=== PATIENT | male | born 1970 | race Caucasian/White ===

== ENCOUNTER 2022-02-11 20:41 | Emergency (ER) | payer MEDICARE ==
[2022-02-11] MEDS ORDERED: BABY ASPIRIN 81 MG CHEW PO ONE (20:58)
[2022-02-11 21:17] LABS: Absolute Neutrophil Ct (ANC) 4.16 x10^3/uL (1.4-6.9); Basophil (Absolute #) 0.04 x10^3/uL (0-0.4); Eosinophil % 0.9 % (0.00-5.0); Eosinophil (Absolute #) 0.08 x10^3/uL (0-0.5); Hematocrit 45.8 % (42-50); Hemoglobin 15.4 g/dL (12.5-18.0); Lymphocyte (Absolute #) 3.07 x10^3/uL (1.0-4.6); Lymphocytes % 35.7 % (24.0-44.0); Mean Cell Volume 90.7 fL (78-100); Mean Corpuscular Hemoglobin 30.5 pg (26-32); Mean Corpuscular Hgb Concent. 33.6 g/dL (32-36); Monocyte (Absolute #) 1.23 x10^3/uL (0.0-1.3); Monocytes % 14.3 % (0.0-12.0); Neutrophil % 48.3 % (36.0-66.0); Platelet Count 281 x10^3/uL (150-450); Red Blood Count 5.05 x10^6/uL (4.1-5.6); Red Cell Distribution Width 12.2 % (11.5-14.0); White Blood Count 8.6 x10^3/uL (4.0-10.5)
[2022-02-11 21:37] LABS: ALBUMIN 4.5 g/dL (3.5-5.0); ALKALINE PHOSPHATASE 78 U/L (38-126); ANION GAP 15.1 MEQ/L (5-15); BLOOD UREA NITROGEN 10 mg/dL (9-20); CHLORIDE 105 mmol/L (98-107); CK-Creatinine Phosphokinase 780 U/L (55-170); Calcium 8.8 mg/dL (8.4-10.2); Carbon Dioxide 24 mmol/L (22-30); Creatinine 1 0.86 mg/dL (0.66-1.25); EST GLOMERULAR FILTRATION RATE > 60.0 ML/MIN; Glucose 127 mg/dL (74-106); NT PRO BNP 94.2 pg/mL (0-900); Potassium 3.6 mmol/L (3.5-5.1); SGOT/AST 41 U/L (17-59); SGPT/ALT 33 U/L (0-50); SODIUM 140 mmol/L (137-145); Total Protein 7.7 g/dL (6.3-8.2)
[2022-02-11] MEDS ORDERED: Sodium Chloride 0.9% 1000 ML 1,000 ML IV STA (21:53)
--- NOTE | 2022-02-11 21:55 | ERPHSYRPT ---
- History of Present Illness Time Seen by Provider: 02/11/22 20:45 Historian: patient Exam Limitations: no limitations Patient Subjective Stated Complaint: chest pain Triage Nursing Assessment: pt ambulated into ER without diff, spouse at bedside. Pt c/o chest pain directly under left nipple. Pt denies any radiation of pain. Pt was sitting at the bar drinking today when this occured, had about 4-5 crown and cokes. Pt denies any nausea, vomiting or diaphoresis. Pt had been outside cutting wood most the afternoon. Physician History: 51-year-old male with history of coronary artery disease status post stenting, tobacco abuse presented in the ER with chief complaint of left-sided chest pain sudden onset almost half an hour prior to arrival. Patient took 1 nitro with no significant relief. Patient reports dull aching left-sided pain with no radiation and without any significant aggravating or relieving factors. Denies associated palpitations or shortness of breath. No fever or chills reported. 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 Timing/Duration: hour(s) (0.5), constant, sudden Activities at Onset: rest Quality: burning, dullness Location: substernal Chest Pain Radiation: no radiation Severity of Pain-Max: moderate Severity of Pain-Current: moderate Modifying Factors: Improves With: nothing Associated Symptoms: denies symptoms Prior Chest Pain/Cardiac Workup: cardiac cath, heart attack Nitro Today/Relief: 0.4 mg x 1 Aspirin Treatment Today: 81 mg x 1 Allergies/Adverse Reactions: hydrocodone Adverse Reaction (Intermediate, Verified 02/11/22 20:58) Hives Home Medications: Aspirin EC 81 mg [Ecotrin 81 mg] 1 tab PO DAILY 02/11/22 [History] Hx Tetanus, Diphtheria Vaccination/Date Given: Yes Hx Influenza Vaccination/Date Given: No Hx Pneumococcal Vaccination/Date Given: No Immunizations Up to Date: No Travel Risk - International Travel Have you traveled outside of the country in past 3 weeks: No - Coronavirus Screening Are you exhibiting any of the following symptoms?: No Close contact with a COVID-19 positive Pt in past 14-21 Days: No - Vaccine Status Have you recieved a Covid-19 vaccination: Yes Benefits Analyst: Moderna - Vaccination Dates Date of 2cond Vaccination (if applicable): . - Review of Systems Constitutional: No Symptoms Eyes: No Symptoms Ears, Nose, & Throat: No Symptoms Respiratory: No Symptoms Cardiac: Chest Pain Abdominal/Gastrointestinal: No Symptoms Genitourinary Symptoms: No Symptoms Musculoskeletal: No Symptoms Skin: No Symptoms Neurological: No Symptoms Psychological: No Symptoms Endocrine: No Symptoms Hematologic/Lymphatic: No Symptoms - Past Medical History Pertinent Past Medical History: Yes Neurological History: No Pertinent History ENT History: No Pertinent History Cardiac History: Hypertension, Myocardial Infarction ([place]) Respiratory History: COPD Endocrine Medical History: Diabetes Type II Musculoskeletal History: Fractures GI Medical History: GERD History: No Pertinent History Psycho-Social History: Anxiety, Depression Male Reproductive Disorders: No Pertinent History - Past Surgical History Past Surgical History: Yes Neuro Surgical History: No Pertinent History Cardiac: Cardiac Catheterization, Cardiac Stent Musculoskeletal: Other Other Surgical History: both shoulder surgery x2, left knee surgery, rt and lt foot surgery - Social History Smoking Status: Current every day smoker How long have you smoked: 2 years Exposure to second hand smoke: Yes Drug Use: none Patient Lives Alone: No Significant Family History: no pertinent family hx - Nursing Vital Signs Nursing Vital Signs: Initial Vital Signs Temperature 97.9 F 02/11/22 20:43 Pulse Rate 87 02/11/22 20:43 Respiratory Rate 20 02/11/22 20:43 Blood Pressure 140/87 02/11/22 20:43 O2 Sat by Pulse Oximetry 100 02/11/22 20:43 Pain Scale Pain Intensity 0 - Physical Exam General Appearance: no apparent distress, alert Eye Exam: PERRL/EOMI Ears, Nose, Throat Exam: normal ENT inspection Neck Exam: normal inspection, supple, full range of motion Respiratory Exam: normal breath sounds, lungs clear Cardiovascular Exam: regular rate/rhythm, normal heart sounds Gastrointestinal/Abdomen Exam: soft, normal bowel sounds, No tenderness Back Exam: normal inspection, normal range of motion Extremity Exam: normal inspection, normal range of motion Neurologic Exam: alert, oriented x 3, cooperative Skin Exam: normal color SpO2 Interpretation: normal SpO2: 100 O2 Delivery: Room Air - Course EKG Interpreted by Me: RATE (80), Sinus Rhythm, NORMAL AXIS, NORMAL INTERVALS, Non-specific ST Changes Ordered Tests: Active Orders 24 hr Category Date Time Status Cnc Field Service Engineer STAT Care 02/11/22 20:58 Completed EKG-ER Only STAT Care 02/11/22 20:58 Completed IV Insertion STAT Care 02/11/22 20:58 Completed Oxygen-ED Only Nasal Cannula 2 lpm Care 02/11/22 20:58 Completed CHEST 1 VIEW (PORTABLE) Stat Exams 02/11/22 20:58 Taken CBC W DIFF Stat Lab 02/11/22 21:13 Completed CK-Creatinine Phosphokinase Stat Lab 02/11/22 21:13 Completed CMP Stat Lab 02/11/22 21:13 Completed NT PRO BNP Stat Lab 02/11/22 21:13 Completed TROPONIN Q4H Lab 02/11/22 21:13 Completed Medication Summary Discontinued Medications Generic Name Dose Route Start Last Admin Trade Name Chayito PRN Reason Stop Dose Admin Aspirin 324 mg 02/11/22 20:58 02/11/22 21:08 Aspirin 81 Mg Tab.Chew PO 02/11/22 20:59 324 mg STAT ONE Administration Sodium Chloride 1,000 mls @ 999 mls/hr 02/11/22 21:53 02/11/22 22:01 Sodium Chloride 0.9% 1000 Ml IV 02/11/22 22:53 999 mls/hr .Q1H1M STA Administration Sodium Chloride Confirm 02/11/22 22:00 Sodium Chloride 0.9% 1000 Ml Administered 02/11/22 22:01 Dose 1,000 mls @ ud .ROUTE .STK-MED ONE Lab/Rad Data: Laboratory Result Diagrams 02/11/22 21:13 02/11/22 21:13 Laboratory Results 02/11/22 02/11/22 02/11/22 Range/Units 21:13 21:13 21:13 WBC 8.6 (4.0-10.5) x10^3/uL RBC 5.05 (4.1-5.6) x10^6/uL Hgb 15.4 (12.5-18.0) g/dL Hct 45.8 (42-50) % MCV 90.7 (78-100) fL MCH 30.5 (26-32) pg MCHC 33.6 (32-36) g/dL RDW 12.2 (11.5-14.0) % Plt Count 281 (150-450) x10^3/uL MPV 10.0 (7.5-11.0) fL Gran % 48.3 (36.0-66.0) % Immature Gran % (Auto) 0.3 (0.00-0.4) % Nucleat RBC Rel Count 0.0 (0.00-0.1) % Eos # (Auto) 0.08 (0-0.5) x10^3/uL Immature Gran # (Auto) 0.03 (0.00-0.03) x10^3u/L Absolute Lymphs (auto) 3.07 (1.0-4.6) x10^3/uL Absolute Monos (auto) 1.23 (0.0-1.3) x10^3/uL Absolute Nucleated RBC 0.00 (0.00-0.01) x10^3u/L Lymphocytes % 35.7 (24.0-44.0) % Monocytes % 14.3 H (0.0-12.0) % Eosinophils % 0.9 (0.00-5.0) % Basophils % 0.5 (0.0-0.4) % Absolute Granulocytes 4.16 (1.4-6.9) x10^3/uL Basophils # 0.04 (0-0.4) x10^3/uL Sodium 140 (137-145) mmol/L Potassium 3.6 (3.5-5.1) mmol/L Chloride 105 (98-107) mmol/L Carbon Dioxide 24 (22-30) mmol/L Anion Gap 15.1 H (5-15) MEQ/L BUN 10 (9-20) mg/dL Creatinine 0.86 (0.66-1.25) mg/dL Estimated GFR > 60.0 ML/MIN Glucose 127 H (74-106) mg/dL Calcium 8.8 (8.4-10.2) mg/dL Total Bilirubin 0.50 (0.2-1.3) mg/dL AST 41 (17-59) U/L ALT 33 (0-50) U/L Alkaline Phosphatase 78 (38-126) U/L Creatine Kinase 780 H (55-170) U/L Troponin I 0.028 (0.000-0.034) ng/mL NT-Pro-B Natriuret Pep 94.2 (0-900) pg/mL Serum Total Protein 7.7 (6.3-8.2) g/dL Albumin 4.5 (3.5-5.0) g/dL - Progress Progress: improved Air Movement: good Progress Note: 02/11/22 23:15 41-year-old with history of CAD, tobacco abuse is evaluated for precordial chest pain. Given aspirin, on reevaluation patient reported his chest pain is completely resolved. EKG showed some ST depression in lead II but no ST elevation and has negative initial troponins. Chest x-ray did not show any acute cardiopulmonary findings on preliminary report by Daniel saldana. Does have elevated CK level which patient probably have been doing hard work all day today and has elevated CK level, given fluids. I have discussed with and patient is excepted for admission. I discussed with patient about admission plan which she clearly refused. He refused to have CTA done as well. He refused to stay until second troponin. Patient wants to leave immediately. Patient is not confused or altered at all. Discussed with him about leaving AGAINST MEDICAL ADVICE which include but not limited to delaying the diagnosis, worsening of condition and permanent disability but he still does not want to stay. Patient states "I will follow-up with my torch cutter". Blood Culture(s) Obtained: No Antibiotics given: No Discussed with : Barb Counseled pt/family regarding: lab results, diagnosis, need for follow-up, rad results - Departure Departure Disposition: AMA Clinical Impression: Precordial chest pain, Rhabdomyolysis Condition: Stable Critical Care Time: No Referrals: CHECO PARKS DO [Primary Care Provider] - Follow up/PCP as directed (1-2 days for reevaluation) KOLTON WYATT [CONSULTING PHYSICIAN] - Follow up/PCP as directed (Tomorrow for reevaluation) Instructions: Angina (DC), Chest Pain (DC) Additional Instructions: Follow-up with primary care and cardiology for reevaluation. Return to ER for persistent chest pain or if having difficulty breathing/palpitations etc.
[2022-02-11] MEDS ORDERED: Sodium Chloride 0.9% 1000 ML 1,000 ML ONE (22:00)
[2022-02-11 23:21] VITALS: BP 136/79
[2022-02-11 23:22] VITALS: PULSE 66
[2022-02-12 00:25] VITALS: O2SAT 100
--- NOTE | 2022-02-12 09:02 | XRAY ---
Indication: Chest pain. Comparison: None Portable chest inflated and clear. Heart and mediastinal structures within normal limits. Bony thorax intact with osteopenia, degenerative changes, mild levoscoliosis, and left shoulder surgery. Impression: Nonacute chest with chronic bony findings. Comment: Preliminary interpretation made by [facility]. No critical discrepancy.
== END 2022-02-11 23:27 | disposition left against medical advice (07) ==
LOC: ED 20:41
DX: M62.82 Rhabdomyolysis (principal); R07.2 Precordial pain; I10 Essential (primary) hypertension; E11.9 Type 2 diabetes mellitus without complications; Z72.0 Tobacco use
CPT/HCPCS: 36000; 36415; 71045; 80053; 82550; 83880; 84484; 85025; 93005; 93041; 96360; 96374; 99284; A9270-GY

== ENCOUNTER 2022-05-26 03:22 | Emergency (ER) | payer MEDICARE ==
[2022-05-26] MEDS ORDERED: Adacel Vial IM ONE ×2 (04:16→04:19)
--- NOTE | 2022-05-26 04:18 | ERPHSYRPT ---
- History of Present Illness Time Seen by Provider: 05/26/22 03:45 Source: patient Patient Subjective Stated Complaint: pt reports falling over his dog and striking his head on a small end table. pt also reports abrasion to his left arm. pt denies LOC. Triage Nursing Assessment: pt is aox3, pupils perrl, afebrile, resps easy and non labored, radial pulses strong and equal, cap refill < 3 seconds, pt skin pink warm dry. pt with an approximate 2.5 cm laceration to his right lateral head, skin is well approximated, no bleeding at this time. Physician History: 51yo M presents to the ED and reports falling over his dog and striking his head on a small end table. pt also reports abrasion to his left arm. pt denies LOC. 2/10 HORVATH at this time. No focal deficits, speech changes or changes in vision. Timing/Duration: today Quality: painful Severity: mild Location: scalp Possible Causes: other (fall) Associated Symptoms: headache Allergies/Adverse Reactions: hydrocodone Adverse Reaction (Intermediate, Verified 05/26/22 03:37) Hives Home Medications: Aspirin EC 81 mg [Ecotrin 81 mg] 1 tab PO DAILY 02/11/22 [History] Hx Tetanus, Diphtheria Vaccination/Date Given: No (unk) Hx Influenza Vaccination/Date Given: No Hx Pneumococcal Vaccination/Date Given: No Immunizations Up to Date: Yes Travel Risk - International Travel Have you traveled outside of the country in past 3 weeks: No - Coronavirus Screening Are you exhibiting any of the following symptoms?: No Close contact with a COVID-19 positive Pt in past 14-21 Days: No - Vaccine Status Have you recieved a Covid-19 vaccination: Yes Occupancy Specialist: Moderna - Vaccination Dates Date of 2cond Vaccination (if applicable): unk - Review of Systems Constitutional: No Symptoms Eyes: No Symptoms Ears, Nose, & Throat: No Symptoms Respiratory: No Symptoms Cardiac: No Symptoms Abdominal/Gastrointestinal: No Symptoms Genitourinary Symptoms: No Symptoms Musculoskeletal: No Symptoms Skin: Other (laceration right scalp) Neurological: Headache - Past Medical History Pertinent Past Medical History: Yes Neurological History: No Pertinent History ENT History: No Pertinent History Cardiac History: Hypertension, Myocardial Infarction ([place]) Respiratory History: COPD Endocrine Medical History: Diabetes Type II Musculoskeletal History: Fractures GI Medical History: GERD History: No Pertinent History Psycho-Social History: Anxiety, Depression Male Reproductive Disorders: No Pertinent History - Past Surgical History Past Surgical History: Yes Neuro Surgical History: No Pertinent History Cardiac: Cardiac Catheterization, Cardiac Stent Musculoskeletal: Other Other Surgical History: both shoulder surgery x2, left knee surgery, rt and lt foot surgery - Social History Smoking Status: Current every day smoker How long have you smoked: 2 years Exposure to second hand smoke: No Drug Use: none Patient Lives Alone: No Significant Family History: no pertinent family hx - Nursing Vital Signs Nursing Vital Signs: Initial Vital Signs Temperature 97.6 F 05/26/22 03:28 Pulse Rate 66 05/26/22 03:28 Respiratory Rate 18 05/26/22 03:28 Blood Pressure 136/89 05/26/22 03:28 O2 Sat by Pulse Oximetry 96 05/26/22 03:28 Pain Scale Pain Intensity 1 - Physical Exam General Appearance: no apparent distress, alert Eye Exam: PERRL/EOMI, eyes nml inspection Ears, Nose, Throat Exam: normal ENT inspection Neck Exam: normal inspection, non-tender, supple, full range of motion Neurologic Exam: alert, oriented x 3, cooperative, normal mood/affect, nml station & gait, No motor deficits, No sensory deficit Skin Exam: normal color, warm, dry, abrasion (left wrist), laceration (right parietal region scalp) SpO2 Interpretation: normal SpO2: 99 O2 Delivery: Room Air Procedures - Laceration/Wound Repair Right Parietal Time of Procedure: 03:45 Wound Location: Right, head Wound Length (cm): 2.5 Wound's Depth, Shape: superficial Wound Explored: to base Irrigated: Yes Hibiclens Prep: Yes Anesthesia: 1% lidocaine w/ Epi Volume Anesthetic (ccs): 3.5 Wound Debrided: minimal Wound Repaired With: sutures Suture Size/Type: 5-0, vicryl Number of Sutures: 4 (superficial interrupted) Layer Closure?: Yes Deep Layer Suture Size/Type: 5:0 (vicryl) Number Deep Layer Sutures: 1 Sterile Dressing Applied?: No - Course Nursing assessment & vital signs reviewed: Yes - Progress Progress: improved Progress Note: See procedure note. Patient tolerated procedure well. No concern for fx or concussion at this time. 05/26/22 04:22 Counseled pt/family regarding: need for follow-up Medical Desision Making - Diagnostic Testing Diagnostic test were ordered, analyzed, and reviewed by me: No - Risk of complications Low Risk: Low risk of morbidity from additional dx testing or treatment - Departure Departure Disposition: Home Clinical Impression: Laceration Condition: Good Critical Care Time: No Instructions: Laceration Repair With Stitches (DC)
[2022-05-26 04:30] VITALS: BP 113/67; PULSE 66; O2SAT 97
== END 2022-05-26 04:29 | disposition home or self-care (01) ==
LOC: ED 03:22
DX: S01.01XA Laceration without foreign body of scalp, initial encounter (principal); S60.812A Abrasion of left wrist, initial encounter; W01.190A Fall on same level from slipping, tripping and stumbling with subsequent striking against furniture, initial encounter; R51.9 Headache, unspecified; E11.9 Type 2 diabetes mellitus without complications; I10 Essential (primary) hypertension; Z72.0 Tobacco use
CPT/HCPCS: 12001; 90471; 90715; 99282

== ENCOUNTER 2023-07-12 01:16 | Emergency (ER) | payer MEDICARE ==
[2023-07-12] MEDS ORDERED: BABY ASPIRIN 81 MG CHEW PO ONE (01:53)
[2023-07-12 02:06] LABS: Absolute Neutrophil Ct (ANC) 3.35 x10^3/uL (1.4-6.9); BASOPHIL % 0.6 % (0.0-0.4); Basophil (Absolute #) 0.05 x10^3/uL (0-0.4); Eosinophil % 2.6 % (0.00-5.0); Eosinophil (Absolute #) 0.23 x10^3/uL (0-0.5); Hematocrit 42.8 % (42-50); Hemoglobin 14.7 g/dL (12.5-18.0); IMMATURE GRAN # 0.03 x10^3u/L (0.00-0.03); IMMATURE GRAN % 0.3 % (0.00-0.4); Lymphocyte (Absolute #) 4.46 x10^3/uL (1.0-4.6); Lymphocytes % 51.3 % (24.0-44.0); Mean Cell Volume 89.7 fL (78-100); Mean Corpuscular Hemoglobin 30.8 pg (26-32); Mean Corpuscular Hgb Concent. 34.3 g/dL (32-36); Mean Platelet Volume 9.9 fL (7.5-11.0); Monocyte (Absolute #) 0.58 x10^3/uL (0.0-1.3); Monocytes % 6.7 % (0.0-12.0); Neutrophil % 38.5 % (36.0-66.0); Platelet Count 269 x10^3/uL (150-450); Red Blood Count 4.77 x10^6/uL (4.1-5.6); Red Cell Distribution Width 12.1 % (11.5-14.0); White Blood Count 8.7 x10^3/uL (4.0-10.5)
--- NOTE | 2023-07-12 02:07 | ERPHSYRPT ---
- History of Present Illness Time Seen by Provider: 07/12/23 01:41 Historian: patient, family Exam Limitations: no limitations Patient Subjective Stated Complaint: left sided chest pain moving up to left shoulder Triage Nursing Assessment: Pt ambulated to room, guarding chest. Respirations unlabored. Skin color WNL for race. A&O X 3. Lung sounds clear throughout. Heart sounds regular S1, S2 present. Bowel sounds hyperactive x 4 quad. No edema or diaphoresis. Denies dyspnea, N/V. Physician History: 52 years old male with history of coronary artery disease with stenting, hypertension, diabetes mellitus, tobacco abuse presented in the ER with complaint of sudden onset left-sided chest pain with some radiation to left shoulder and neck. Patient report he was really upset with his dog and started to have pain almost 20 minutes prior to arrival. He took nitro and improved on the way to emergency room. Patient is currently chest pain-free. Denies associated palpitations or shortness of breath. Aspirin Treatment Today: 81 mg x 1 Allergies/Adverse Reactions: hydrocodone Adverse Reaction (Intermediate, Verified 07/12/23 01:38) Hiv Home Medications: Aspirin EC 81 mg [Ecotrin 81 mg] 1 tab PO DAILY 02/11/22 [History] Hx Tetanus, Diphtheria Vaccination/Date Given: No (unk) Hx Influenza Vaccination/Date Given: No Hx Pneumococcal Vaccination/Date Given: No Immunizations Up to Date: Yes Travel Risk - International Travel Have you traveled outside of the country in past 3 weeks: No - Emerging Infectious Disease Are you exhibiting symptoms associated with any current EIDs: No - Review of Systems Constitutional: No Symptoms Ears, Nose, & Throat: No Symptoms Respiratory: No Symptoms Cardiac: No Symptoms Abdominal/Gastrointestinal: No Symptoms Genitourinary Symptoms: No Symptoms Musculoskeletal: Back Pain Skin: No Symptoms Neurological: No Symptoms Psychological: No Symptoms Endocrine: No Symptoms Hematologic/Lymphatic: No Symptoms Immunological/Allergic: No Symptoms - Past Medical History Pertinent Past Medical History: Yes Neurological History: No Pertinent History ENT History: No Pertinent History Cardiac History: Hypertension, Myocardial Infarction ([place]) Respiratory History: COPD Endocrine Medical History: Diabetes Type II Musculoskeletal History: Fractures GI Medical History: GERD History: No Pertinent History Psycho-Social History: Anxiety, Depression, Panic Disorder, Other Male Reproductive Disorders: No Pertinent History Other Medical History: explosive personality disorder, dislocated ribs - Past Surgical History Past Surgical History: Yes Neuro Surgical History: No Pertinent History Cardiac: Cardiac Catheterization, Cardiac Stent Respiratory: No Pertinent History Gastrointestinal: No Pertinent History Genitourinary: No Pertinent History Musculoskeletal: Other Male Surgical History: No Pertinent History Other Surgical History: both shoulder surgery x2, left knee surgery, rt and lt foot surgery Significant Family History: no pertinent family hx - Social History Smoking Status: Current every day smoker How long have you smoked: 38 years Exposure to second hand smoke: No Drug Use: none Patient Lives Alone: No - Nursing Vital Signs Nursing Vital Signs: Initial Vital Signs Pulse Rate 66 07/12/23 01:44 Respiratory Rate 18 07/12/23 01:44 Blood Pressure 132/87 07/12/23 01:44 O2 Sat by Pulse Oximetry 98 07/12/23 01:44 Pain Scale Pain Intensity 0 - Physical Exam General Appearance: no apparent distress, alert Eye Exam: PERRL/EOMI Ears, Nose, Throat Exam: normal ENT inspection Neck Exam: normal inspection, supple, full range of motion Respiratory Exam: normal breath sounds, lungs clear Cardiovascular Exam: regular rate/rhythm, normal heart sounds Gastrointestinal/Abdomen Exam: soft, No tenderness Back Exam: normal inspection Extremity Exam: normal inspection, normal range of motion Neurologic Exam: alert, cooperative, ice seller II-XII nml as tested Skin Exam: normal color SpO2 Interpretation: normal SpO2: 96 O2 Delivery: Room Air - Course EKG Interpreted by Me: RATE (69), Sinus Rhythm, NORMAL AXIS, NORMAL INTERVALS, NORMAL QRS Ordered Tests: Medication Summary Discontinued Medications Generic Name Dose Route Start Last Admin Trade Name Freq PRN Reason Stop Dose Admin Aspirin 243 mg 07/12/23 03:45 07/12/23 03:49 Aspirin 81 Mg Tab.Chew PO 07/12/23 03:46 243 mg STAT ONE Administration Lab/Rad Data: Laboratory Result Diagrams 07/12/23 01:50 07/12/23 01:50 Laboratory Results 07/12/23 07/12/23 07/12/23 Range/Units 01:50 01:50 01:50 WBC 8.7 (4.0-10.5) x10^3/uL RBC 4.77 (4.1-5.6) x10^6/uL Hgb 14.7 (12.5-18.0) g/dL Hct 42.8 (42-50) % MCV 89.7 (78-100) fL MCH 30.8 (26-32) pg MCHC 34.3 (32-36) g/dL RDW 12.1 (11.5-14.0) % Plt Count 269 (150-450) x10^3/uL MPV 9.9 (7.5-11.0) fL Gran % 38.5 (36.0-66.0) % Immature Gran % (Auto) 0.3 (0.00-0.4) % Nucleat RBC Rel Count 0.0 (0.00-0.1) % Eos # (Auto) 0.23 (0-0.5) x10^3/uL Immature Gran # (Auto) 0.03 (0.00-0.03) x10^3u/L Absolute Lymphs (auto) 4.46 (1.0-4.6) x10^3/uL Absolute Monos (auto) 0.58 (0.0-1.3) x10^3/uL Absolute Nucleated RBC 0.00 (0.00-0.01) x10^3u/L Lymphocytes % 51.3 H (24.0-44.0) % Monocytes % 6.7 (0.0-12.0) % Eosinophils % 2.6 (0.00-5.0) % Basophils % 0.6 (0.0-0.4) % Absolute Granulocytes 3.35 (1.4-6.9) x10^3/uL Basophils # 0.05 (0-0.4) x10^3/uL Sodium 139 (135-145) mmol/L Potassium 4.1 (3.5-5.1) mmol/L Chloride 105 (98-107) mmol/L Carbon Dioxide 23 (22-30) mmol/L Anion Gap 15.8 H (5-15) MEQ/L BUN 10 (9-20) mg/dL Creatinine 0.71 (0.66-1.25) mg/dL Estimated GFR 110.4 ML/MIN Glucose 94 (74-106) mg/dL Calcium 8.7 (8.4-10.2) mg/dL Total Bilirubin 0.30 (0.2-1.3) mg/dL AST 38 (17-59) U/L ALT 31 (0-50) U/L Alkaline Phosphatase 67 (38-126) U/L Troponin I < 0.012 (0.000-0.033) ng/mL NT-Pro-B Natriuret Pep 89.8 (<300) pg/mL Serum Total Protein 6.8 (6.3-8.2) g/dL Albumin 4.1 (3.5-5.0) g/dL - Progress Progress: improved Air Movement: good Progress Note: 07/12/23 04:01 52 years old is evaluated for sudden onset chest pain. EKG is normal sinus rhythm with no acute ischemic changes. Chest x-ray negative for any acute cardiopulmonary findings reviewed by me, official report is pending. Has negative initial troponin. Normal white count, fairly unremarkable chemistries. Patient chest pain started almost 20 minutes prior to arrival and with his history of coronary artery disease with stenting, initial troponin could be misleading the normal, recommended to have second troponin but patient states that it was because of him being upset about his dog caused to have chest pain. He does not want to stay in the hospital for second troponin. Discussed with patient about risk of leaving AGAINST MEDICAL ADVICE would not only delay the diagnosis but could also lead to worsening of condition with permanent disability including but he still wants to leave. Patient was however ER after signing AMA papers in a stable condition. Blood Culture(s) Obtained: No Antibiotics given: No Counseled pt/family regarding: lab results, diagnosis, need for follow-up, rad results Medical Desision Making - Independent Historian Additional History obtained from: Spouse - Diagnostic Testing Diagnostic test were ordered, analyzed, and reviewed by me: Yes Radiological Interpretation: Interpreted by me, Reviewed by me - Departure Departure Disposition: AMA Clinical Impression: Chest pain, precordial Condition: Stable Critical Care Time: No Referrals: HIEN VILLATORO [Primary Care Provider] - Follow up/PCP as directed
[2023-07-12 02:14] LABS: ALBUMIN 4.1 g/dL (3.5-5.0); ANION GAP 15.8 MEQ/L (5-15); BILIRUBIN,TOTAL 0.3 mg/dL (0.2-1.3); Calcium 8.7 mg/dL (8.4-10.2); Creatinine 1 0.71 mg/dL (0.66-1.25); EST GLOMERULAR FILTRATION RATE 110.4 ML/MIN; Potassium 4.1 mmol/L (3.5-5.1); Total Protein 6.8 g/dL (6.3-8.2)
[2023-07-12 02:26] LABS: NT PRO BNPII 89.8 pg/mL (<300); TROPONIN < 0.012 ng/mL (0.000-0.033)
[2023-07-12] MEDS: BABY ASPIRIN 81 MG CHEW PO ONE (03:49)
[2023-07-12 04:45] VITALS: BP 126/91; PULSE 59; RESP 20
[2023-07-12 06:51] VITALS: O2SAT 96
--- NOTE | 2023-07-12 09:17 | XRAY ---
Indication: Chest pain. Comparison: February 11, 2022 Portable chest remains inflated and clear. Heart not enlarged. Bony thorax intact again with osteopenia, degenerative changes, mild levoscoliosis, and left shoulder surgery. Impression: Continued nonacute chest with chronic bony findings.
== END 2023-07-12 04:46 | disposition left against medical advice (07) ==
LOC: ED 01:16
DX: R07.2 Precordial pain (principal); I10 Essential (primary) hypertension; E11.9 Type 2 diabetes mellitus without complications; Z79.899 Other long term (current) drug therapy; Z72.0 Tobacco use
CPT/HCPCS: 36000; 36415; 71045; 80053; 83880; 84484; 85025; 93005; 93041; 99284; A9270-GY